=== PATIENT | female | born 1965 | race Caucasian/White ===

== ENCOUNTER 2020-05-05 10:22 | Day surgery (SDC) | payer OTHER ==
[2020-05-04 10:19] VITALS: BMI 28.3
[2020-05-05] MEDS ORDERED: Lidocaine 1% w/Epinephrine 1:100K 20 ML VIAL ONE (13:02)
[2020-05-05] MEDS ORDERED: Midazolam HCl 2 mg/2 ml Vial ONE ×2 (13:02→13:06)
[2020-05-05] MEDS ORDERED: Scopolamine 1.5 mg/72 hour Patch ONE (13:02)
[2020-05-05] MEDS ORDERED: Fentanyl 100 MCG/2 ML VIAL ONE ×2 (13:06→14:38)
[2020-05-05] MEDS ORDERED: PROPOFOL 200 MG/20 ML VIAL ONE (13:16)
[2020-05-05] MEDS ORDERED: Lidocaine 1% PF 5 ML VIAL ONE (13:16)
[2020-05-05] MEDS ORDERED: Rocuronium Bromide 10 MG/ML (10ML VIAL) ONE (13:16)
[2020-05-05] MEDS ORDERED: Glycopyrrolate 0.2 MG/ML 5 ML SYRINGE ONE (13:16)
[2020-05-05] MEDS ORDERED: Dexamethasone 20 MG/5 ML VIAL ONE (13:16)
[2020-05-05] MEDS ORDERED: Ondansetron PF 4 MG/2 ML Vial ONE (13:16)
[2020-05-05] MEDS ORDERED: PHENYLEPHRINE-NS 100 MCG/ML 10 ML SYRINGE ONE (13:16)
[2020-05-05] MEDS ORDERED: SUGAMMADEX SODIUM 500 MG/5 ML VIAL ONE (13:26)
[2020-05-05] MEDS ORDERED: Promethazine HCl 25 MG/ML VIAL ONE (14:38)
[2020-05-05] MEDS ORDERED: Hydrocodone-Acetamin 15 ML UDCUP ONE (15:42)
== END 2020-05-05 17:15 | disposition home or self-care (01) ==
LOC: SDC 10:22
PROVIDERS: ATTEND Otolaryngology Plastic Surgery within the Head & Neck
PROC: 0CTH0ZZ Resection of Left Submaxillary Gland, Open Approach (ICD-10-PCS; principal; 2020-05-05)
DX: K11.23 Chronic sialoadenitis (principal); H91.93 Unspecified hearing loss, bilateral; I10 Essential (primary) hypertension; J45.909 Unspecified asthma, uncomplicated; K21.9 Gastro-esophageal reflux disease without esophagitis; G40.909 Epilepsy, unspecified, not intractable, without status epilepticus; Z79.899 Other long term (current) drug therapy
CPT/HCPCS: 36415; 84703; 85014; 88307; 93005; 93010; J1100; J2250; J2405; J2550; J2704; J3010